=== PATIENT | female | born 1995 | race Two or more races ===

== ENCOUNTER 2022-11-15 15:16 | Emergency (ER) | payer OTHER ==
[~2022-11-15] VITALS: Ht 208.3 cm; Wt 149.7 kg
--- NOTE | 2022-11-15 16:26 | NUR ---
NOHEMY REEDER CALLED PATIENT IN [place], NO ANSWER
--- NOTE | 2022-11-15 16:39 | NUR ---
Patient eloped from facility. ER MD notified.
--- NOTE | 2022-11-15 17:46 | NUR ---
TECH AT BEDSIDE FOR ULTRASOUND
[2022-11-15 18:23] LABS: BASOPHILS % (AUTO) 0.4 % (0.0-2.0); EOSINOPHILS % (AUTO) 2.3 % (0.0-6.0); HEMATOCRIT 46 % (33-45); LYMPHOCYTES % (AUTO) 33.9 % (20.0-44.0); MEAN CORPUSCULAR HGB CONC 32 g/dl (31.0-36.0); MEAN CORPUSCULAR VOLUME 87 fL (82-100); MONOCYTES # (AUTO) 0.6 K/uL (0.1-1.30); MONOCYTES % (AUTO) 6.5 % (2.0-12.0); NEUTROPHILS % (AUTO) 56.9 % (43.0-81.0); PLATELET COUNT (AUTO) 327 K/uL (150-450); WHITE BLOOD COUNT (AUTO) 8.7 K/uL (4.3-11.0)
[2022-11-15 18:40] LABS: BILIRUBIN,DIRECT 0.1 mg/dL (0.0-0.2); BILIRUBIN,TOTAL 0.2 mg/dL (0.2-1.0); CALCIUM, SERUM 8.6 mg/dL (8.5-10.1); CREATININE 0.7 mg/dL (0.6-1.3); POTASSIUM 3.8 mmol/L (3.5-5.1); TOTAL PROTEIN, SERUM 8.5 g/dL (6.4-8.2)
--- NOTE | 2022-11-15 19:14 | NUR ---
URINE SAMPLE OBTAINED AND SENT TO LAB
[2022-11-15 20:00] LABS: BILIRUBIN,URINE NEGATIVE (NEGATIVE); COLOR,URINE YELLOW (YELLOW); LEUKOCYTE ESTERASE ,URINE NEGATIVE (NEGATIVE); NITRITE, URINE NEGATIVE (NEGATIVE); PH,URINE 5.5 (5.0-8.0); PROTEIN,URINE NEGATIVE (NEGATIVE); UGLUCOSE NEGATIVE (NEGATIVE); UROBILINOGEN,URINE 0.2 EU/dL (0.2)
[2022-11-15 20:08] LABS: BACTERIA,URINE None seen /HPF (None Seen); WBC,URINE 0-2 /HPF (0-3)
[2022-11-15 20:09] LABS: MUCUS,URINE Few /LPF (None Seen)
[2022-11-15] MEDS ORDERED: NAPR500T6 PO (20:18)
--- NOTE | 2022-11-15 20:44 | NUR ---
RECEIVED CALL FROM BERENICE MCMANUS. PATIENT IS NOT A CANDIDATE FOR [facility]
--- NOTE | 2022-11-15 20:59 | NUR ---
Patient discharged to home in stable condition. Written and verbal after care instructions given. Patient verbalizes understanding of instruction.
[2022-11-15 21:00] VITALS: BP 145/90
== END 2022-11-15 21:00 | disposition home or self-care (01) ==
LOC: ER 15:24
DX: N93.9 Abnormal uterine and vaginal bleeding, unspecified (principal)
CPT/HCPCS: 36415; 76856-TC; 80048-TC; 80076-TC; 81001; 84702-TC; 84703-TC; 85025-TC; 85730-TC